=== PATIENT | female | born 1995 ===

== ENCOUNTER 2024-01-06 04:11 | Day surgery (SDC) | payer BC ==
[2024-01-04 16:48] VITALS: BMI 37.3
[2024-01-06 13:27] LABS: BASO % 0.5 % (0-2.0); EOS % 1.5 % (0-4.5); HEMATOCRIT 35.1 % (32.4-45.2); HEMOGLOBIN 11.2 GM/dL (10.7-15.3); LYMPH % 35.1 % (8-40); MCH 24.6 pg (25.7-33.7); MEAN CELL VOLUME 76.8 fl (80-96); MEAN PLT VOLUME 7.6 fl (7.5-11.1); NEUT % 54.9 % (42.8-82.8); PLATELET COUNT 517 10^3/uL (134-434); RBC 4.57 M/mm3 (3.60-5.2); RDW 14.8 % (11.6-15.6); WHITE BLOOD COUNT 7.1 K/mm3 (4.0-10.0)
[2024-01-06 13:48] LABS: POTASSIUM 4.1 mmol/L (3.5-5.1)
[2024-01-06 13:50] LABS: ALBUMIN 3.4 g/dl (3.4-5.0); BLOOD UREA NITROGEN 7.3 mg/dL (7-18); CALCIUM 9.4 mg/dL (8.5-10.1)
[2024-01-06 13:55] LABS: BILIRUBIN,TOTAL 0.4 mg/dL (0.2-1)
[2024-01-06 14:01] LABS: CREATININE 0.6 mg/dL (0.55-1.3)
[2024-01-06] MEDS ORDERED: LIDOCAINE 1%/EPI 1:100000 (20 ML MULTI DOSE VIAL) ONE (14:37)
[2024-01-06] MEDS ORDERED: PROPOFOL 20 ML ONE ×2 (14:48→16:09)
[2024-01-06] MEDS ORDERED: LIDOCAINE HCL/PF 2% SDV 5ML VIAL ONE (14:48)
[2024-01-06] MEDS ORDERED: MIDAZOLAM HCL 2 MG/2 ML SINGLE DOSE VIAL ONE (14:49)
[2024-01-06] MEDS ORDERED: SUCCINYLCHOLINE CHLORIDE 200 MG/10 ML SYRINGE ONE (14:49)
[2024-01-06] MEDS: ceFAZolin SODIUM 1 GM VIAL IVPB ONE (15:09)
[2024-01-06] MEDS ORDERED: KETOROLAC TROMETHAMINE 30 MG/1 ML VIAL ONE (15:11)
[2024-01-06] MEDS ORDERED: ceFAZolin SODIUM 1 GM VIAL ONE (15:11)
[2024-01-06] MEDS ORDERED: ONDANSETRON 4 MG/2 ML VIAL ONE (15:11)
[2024-01-06] MEDS ORDERED: DEXAMETHASONE SOD PHOSPHATE 4 MG/1 ML VIAL ONE (15:11)
[2024-01-06] MEDS: LIDOCAINE 1%/EPI 1:100000 (20 ML MULTI DOSE VIAL) IJ ONE (15:23)
[2024-01-06] MEDS ORDERED: SUGAMMADEX SODIUM 200 MG/2 ML VIAL ONE (16:11)
[2024-01-06] MEDS ORDERED: ONDANSETRON 4 MG/2 ML VIAL IVPUSH PRN (16:30)
[2024-01-06] MEDS: LACTATED RINGERS SOLUTION 1,000 ML IV SCH (16:50)
[2024-01-06] MEDS: ACETAMINOPHEN 1000 MG/100 ML BAG IVPB ONE (16:51)
[2024-01-06 18:39] VITALS: RESP 18
[2024-01-06 19:46] VITALS: PULSE 59
[2024-01-06 19:51] VITALS: BP 106/55; TEMP 97.8
== END 2024-01-06 19:42 | disposition home or self-care (01) ==
LOC: JASU-SURG 04:11
PROVIDERS: ATTEND Obstetrics & Gynecology Gynecologic Oncology
PROC: 0UDB7ZX Extraction of Endometrium, Via Natural or Artificial Opening, Diagnostic (ICD-10-PCS; 2024-01-06)
PROC: 0UT6FZZ Resection of Left Fallopian Tube, Via Natural or Artificial Opening With Percutaneous Endoscopic Assistance (ICD-10-PCS; principal; 2024-01-06 14:00)
PROC: 0UT1FZZ Resection of Left Ovary, Via Natural or Artificial Opening With Percutaneous Endoscopic Assistance (ICD-10-PCS; 2024-01-06 14:00)
DX: N83.202 Unspecified ovarian cyst, left side (principal); N93.8 Other specified abnormal uterine and vaginal bleeding
CPT/HCPCS: 36415; 80053; 81025; 85025; 85730; 86850; 86900; 86901; 88108; 88305-TC; 88307-TC; 88331-TC; 88342-TC; 94760; J0131